=== PATIENT | male | born 1960 | race Caucasian/White ===

== ENCOUNTER 2020-02-27 18:13 | Inpatient (IN) | payer OTHER ==
[~2020-02-27] VITALS: Ht 195.6 cm; Wt 95.3 kg
[2020-02-27 18:41] VITALS: BP 132/83
[2020-02-27 19:07] LABS: ABSOLUTE EOSINOPHILS 0.1 thou/uL (0.0-0.7); ABSOLUTE LYMPHOCYTES 1.2 thou/uL (0.8-5.3); ABSOLUTE MONOCYTES 1.3 thou/uL (0.0-1.2); ABSOLUTE NEUTROPHILS 7.3 thou/uL (1.6-8.1); BASOPHILS 0.5 %; EOSINOPHILS 0.6 %; HEMOGLOBIN 14.3 gm/dL (14.0-18.0); LYMPHOCYTES 11.9 %; MCH 31.3 pg (26.0-34.0); MCV 92.2 fL (80.0-100.0); MONOCYTES 13.3 %; NUCLEATED RBCS 0 /100WBC; PLATELET COUNT* 287 thou/uL (150-400); POLYS 73.7 %; RBC 4.56 mil/uL (4.50-6.00); RDW-CV 12.9 % (10.5-14.5); WBC 9.8 thou/uL (4.0-11.0)
[2020-02-27 19:16] LABS: CALCIUM 9.2 mg/dL (8.5-10.1); CREATININE 1.2 mg/dL (0.6-1.3); POTASSIUM 3.7 mmol/L (3.5-5.1)
[2020-02-27 19:20] LABS: ALBUMIN 3.2 g/dL (3.4-5.0); TOTAL BILIRUBIN 1.8 mg/dL (<0.1-1.0); TOTAL PROTEIN 7.4 g/dL (6.4-8.2)
[2020-02-27 21:27] LABS: URINE BLOOD NEGATIVE (Negative); URINE CLARITY CLEAR; URINE COLOR YELLOW; URINE GLUCOSE-RANDOM NEGATIVE (Negative); URINE KETONES 1+ (Negative); URINE LEUKOCYTES-REFLEX NEGATIVE (Negative); URINE NITRITE-REFLEX NEGATIVE (Negative); URINE PROTEIN TRACE (Negative); URINE SPECIFIC GRAVITY 1.015 (1.005-1.030); URINE UROBILINOGEN 0.2 E.U./dl (0.2-1.0)
[2020-02-27 21:28] LABS: ICTOTEST (BILI CONFIRMATORY) Negative (Negative); URINE BILIRUBIN 2+ (Negative)
[2020-02-27 23:00] VITALS: BP 106/65
[2020-02-28 03:00] VITALS: BP 122/77
[2020-02-28 03:25] LABS: ABSOLUTE BASOPHILS 0.1 thou/uL (0.0-0.2); ABSOLUTE EOSINOPHILS 0.1 thou/uL (0.0-0.7); ABSOLUTE LYMPHOCYTES 0.9 thou/uL (0.8-5.3); ABSOLUTE NEUTROPHILS 4.4 thou/uL (1.6-8.1); BASOPHILS 0.9 %; EOSINOPHILS 0.8 %; HEMATOCRIT 36.6 % (42.0-52.0); HEMOGLOBIN 12.4 gm/dL (14.0-18.0); LYMPHOCYTES 13.9 %; MCH 31.2 pg (26.0-34.0); MCHC 33.9 g/dL (28.0-37.0); MCV 92.2 fL (80.0-100.0); MONOCYTES 15.4 %; MPV 8.6 fl. (7.2-11.1); NUCLEATED RBCS 0 /100WBC; PLATELET COUNT* 226 thou/uL (150-400); RBC 3.97 mil/uL (4.50-6.00); RDW-CV 12.6 % (10.5-14.5); WBC 6.4 thou/uL (4.0-11.0)
[2020-02-28 03:35] LABS: CREATININE 1.2 mg/dL (0.6-1.3); POTASSIUM 3.9 mmol/L (3.5-5.1)
[2020-02-28 03:39] LABS: ALBUMIN 2.4 g/dL (3.4-5.0); TOTAL BILIRUBIN 1.8 mg/dL (<0.1-1.0); TOTAL PROTEIN 5.8 g/dL (6.4-8.2)
[2020-02-28 06:51] VITALS: BP 126/73
[2020-02-28] MEDS ORDERED: FAMOTIDINE 20 M20 MG PO (07:20)
[2020-02-28] MEDS ORDERED: LIPITOR 20 MG T20 M1 PO (07:21)
[2020-02-28] MEDS ORDERED: ZETIA10 MG PO (07:21)
[2020-02-28] MEDS ORDERED: DICLOFENAC SOD100 G1 PO (07:21)
[2020-02-28] MEDS ORDERED: ASA81BEC PO (07:22)
[2020-02-28] MEDS ORDERED: TOPROL XL25 MG PO (07:22)
[2020-02-28] MEDS ORDERED: OMEPRAZOLE 20 M20 M1 PO (07:22)
[2020-02-28 08:57] VITALS: BP 156/73
--- NOTE | 2020-02-28 10:44 | EKG ---
[place] [address] ELECTROCARDIOGRAM REPORT Name: LUCIA HARTMAN Room: [address] ADM IN .R.#: [id number] Admission: 02/27/20 Attend Phys: Fredis Helm Discharge: Date of : 56 Date of Service: 02/27/201914 Report #: [id number] THIS REPORT FOR: //name// [facility] ED Test Date: 2020-02-27 Test Time: 19:15:03 Pat Name: LUCIA HARTMAN Department: Room: [facility] Gender: M Synthetic Department Supervisor: MR : [id number] Requested By: Rita Vanessa Order Number: [id number] MD: Eric Agiula Measurements Intervals [place] Rate: 71 P: 34 HI: 164 QRS: -32 QRSD: 99 T: 3 QT: 408 QTc: 444 Interpretive Statements Sinus rhythm Atrial premature complexes Left axis deviation Abnormal R-wave progression, late transition No previous ECG available for comparison Electronically Signed On 02-28-2020 10:44:48 [employer]NA[employer] by Eric Aguila [email or web address] <ELECTRONICALLY SIGNED> By: Eric Aguila MD, FACC 02/28/20 1044 14 14 Eric Aguila MD, FAC /EPI
--- NOTE | 2020-02-28 11:09 | CON ---
[address] [address] CONSULTATION Name: LUCIA HARTMAN Room: [address] IN M.R.#: [id number] Admission: 02/27/20 Attend Phys: Herminia Morales Discharge: Date of : 56 Report #: [id number] THIS REPORT FOR: //name// cc: JOSE DAVIES NP, KATHERINE J. NP ~ DATE OF SERVICE: 02/28/2020 Please note at the time of this dictation, the patient was seen and physically examined by myself. REASON FOR CONSULTATION: Diverticulitis with an abscess. HISTORY OF PRESENT ILLNESS: This is a 59-year-old male who presented to the Emergency Room with worsening of his abdominal pain. The patient states he went and saw his PCP in mid January with having a little bit of pain, thinking it was a flare of his diverticulitis. He was treated with Cipro and Flagyl, he states, which made him sick and gave him a little diarrhea that took about a week after he finished the antibiotics, then it finally clear up. His bowels have been back to normal, soft, minimal form, but no blood noted up until here recently. He states his pain never completely went away until last and Thursday, it started getting a little got worse, it got worse over the weekend, he started noticing with his bowel movements that he was noticing some bright red blood with that as well. On Thursday, his pain got significantly worse. He states he trying to call our office, but unable to get through. His PCP ordered a CT scan, which [facility] had [facility] that conveyed a fluid collection in the pericolonic inflammatory edema that is 6.5 x 3.6 x 4.5 fluid collection in the sigmoid colon. Otherwise, the rest of his CT was normal. The patient then came here to the Emergency Room because his pain was getting significantly worse. He states he had some nausea along with his lower abdominal pain and he was noticing some off and on fever and chills as well. The patient had a flex sig back in 09/2017 that just showed sigmoid diverticulosis and hemorrhoids, but no inking was done. The patient states that he has lost about 10 pounds over the last couple of weeks because he just really has not had much of an appetite since taking those antibiotics. ALLERGIES: No known drug allergies. MEDICATIONS FROM HOME: See MAR. PAST MEDICAL HISTORY: Coronary artery disease, diverticulitis, last bout prior to these was back in 2018. PAST SURGICAL HISTORY: He has had a bypass. [place] [address] CONSULTATION Name: JORGEPuneetLUCIA F Room: [address] IN M.R.#: [id number] Admission: 02/27/20 Attend Phys: Herminia Morales Discharge: Date of : 56 Report #: [id number] FAMILY HISTORY: Negative for any GI or female cancers. SOCIAL HISTORY: Denies any tobacco use. He quit years ago. Denies any illegal drug use, but he does have 2 hard liquor drinks of whiskey, very small amount with Coke 2 a night and has for many years. REVIEW OF SYSTEMS: Twelve-point review of systems is essentially negative except what is mentioned in the HPI. PHYSICAL EXAMINATION: VITAL SIGNS: Temperature 36.3, pulse 92, respirations 14 and blood pressure 156/73. HEART: Regular rate and rhythm. LUNGS: Clear. ABDOMEN: Soft, positive bowel sounds in all 4 quadrants with tenderness noted in the left lower quadrant. LABORATORY DATA: Hemoglobin is 12.4, white count is 6.4 and platelets 226. On admission, his hemoglobin is 14.3, BUN is 27, creatinine is 1.2. Total bilirubin is 1.8, alkaline phosphatase 157, ALT 30, AST is 21. Again, CT showed to be completely normal except for sigmoid diverticulitis with a 6.2 x 3.6 x 4.5 cm fluid collection present in the sigmoid mesentery. IMPRESSION: 1. Abdominal pain. 2. Sigmoid diverticulitis with abscess. 3. Nausea. 4. Elevated LFTs. 5. Alcohol use regularly. PLAN: 1. IR consulted for drain as well as surgery. 2. Continue his antibiotics, piperacillin. 3. The patient will need an office visit in about 4 weeks to schedule a colonoscopy in 09-18 for inking of his diverticular disease. Thank you for allowing us to participate in this patient's care. Please do not hesitate to call with any questions in regard to this consult. <ELECTRONICALLY SIGNED> By: Naresh Schwab DO 02/28/20 1109 0926 [id number] Schwab DO /nt
[2020-02-28 13:28] VITALS: BP 102/57
[2020-02-28 17:54] VITALS: BP 114/76
[2020-02-28 20:12] VITALS: BP 116/74
[2020-02-29] VITALS (7 sets, daily range): BP systolic 95–120; BP diastolic 53–79
[2020-02-29 04:07] LABS: HEMATOCRIT 37.3 % (42.0-52.0); HEMOGLOBIN 12.6 gm/dL (14.0-18.0); MCH 30.9 pg (26.0-34.0); MCHC 33.7 g/dL (28.0-37.0); MCV 91.8 fL (80.0-100.0); MPV 8.8 fl. (7.2-11.1); RBC 4.07 mil/uL (4.50-6.00); RDW-CV 12.6 % (10.5-14.5); WBC 6.5 thou/uL (4.0-11.0)
[2020-02-29 04:38] LABS: ALBUMIN 2.5 g/dL (3.4-5.0); CALCIUM 8.4 mg/dL (8.5-10.1); POTASSIUM 3.8 mmol/L (3.5-5.1); TOTAL BILIRUBIN 1.4 mg/dL (<0.1-1.0); TOTAL PROTEIN 6.2 g/dL (6.4-8.2)
--- NOTE | 2020-02-29 08:39 | NUR ---
PT IS ABLE TO COMMUNICATE HIS NEEDS TO STAFF EFFECTIVELY. HE HAS DENIED THE NEED FOR PAIN MEDICATION UP TO THIS TIME. HE HAS BEEN NPO FOR ABD CT AND POSSIBLE ABCESS DRAIN IN IR LATER TODAY. SURGERY, GI, IR ALL FOLLOWING.
--- NOTE | 2020-02-29 13:53 | NUR ---
Pt is A&O. Resides at home with his . Independent and active. No DME. No hx of SNF. Hx of HH post knee surgery. Hx of outpt therapy. Pt to have CT scan today, drain to be placed on Thursday. Pt's goal is to return home at ne, no needs anticipated. Following.
[2020-03-01 04:00] VITALS: BP 100/70
[2020-03-01 04:25] LABS: ABSOLUTE EOSINOPHILS 0.1 thou/uL (0.0-0.7); ABSOLUTE LYMPHOCYTES 0.9 thou/uL (0.8-5.3); ABSOLUTE MONOCYTES 0.8 thou/uL (0.0-1.2); ABSOLUTE NEUTROPHILS 3.9 thou/uL (1.6-8.1); BASOPHILS 0.8 %; EOSINOPHILS 1.5 %; HEMATOCRIT 36.6 % (42.0-52.0); HEMOGLOBIN 12.4 gm/dL (14.0-18.0); LYMPHOCYTES 15.9 %; MCH 30.9 pg (26.0-34.0); MCHC 33.9 g/dL (28.0-37.0); MCV 90.9 fL (80.0-100.0); MONOCYTES 13.9 %; MPV 8.5 fl. (7.2-11.1); NUCLEATED RBCS 0 /100WBC; PLATELET COUNT* 249 thou/uL (150-400); POLYS 67.9 %; RBC 4.02 mil/uL (4.50-6.00); RDW-CV 12.5 % (10.5-14.5); WBC 5.7 thou/uL (4.0-11.0)
[2020-03-01 04:47] LABS: PREALBUMIN 10.6 mg/dL (18.0-35.7)
--- NOTE | 2020-03-01 04:49 | NUR ---
PT ALERT ORIENTED. UP AD ELIZABETH IN ROOM. TELEMETRY SHOWS SR. ON RA. PT DENIES NEED FOR PAIN MEDICATION. RATING PAIN AT 3. PT REMINDED TO CALL NURSE IF HE HAS INCREASED PAIN. WILL CONTINUE TO MONITOR.
[2020-03-01 05:01] LABS: ALBUMIN 2.5 g/dL (3.4-5.0); CALCIUM 8.4 mg/dL (8.5-10.1); CREATININE 1.1 mg/dL (0.6-1.3); POTASSIUM 3.8 mmol/L (3.5-5.1); TOTAL BILIRUBIN 1.1 mg/dL (<0.1-1.0); TOTAL PROTEIN 6.2 g/dL (6.4-8.2)
[2020-03-01 06:13] LABS: ESR (SEDRATE) 45 mm/hr (0-20)
--- NOTE | 2020-03-01 08:45 | NUR ---
PT TO CT VIA WC WITH DESK OPERATOR.
[2020-03-01 08:59] VITALS: BP 111/68
[2020-03-01 12:00] VITALS: BP 108/66
--- NOTE | 2020-03-01 13:28 | NUR ---
Cat scan today. Abscess drain to be placed tomorrow.
[2020-03-01 15:02] VITALS: BP 108/66
[2020-03-01 16:39] VITALS: BP 124/78
[2020-03-01 19:55] VITALS: BP 105/84
[2020-03-02] VITALS: BP 103/60
[2020-03-02 04:00] VITALS: BP 115/75
[2020-03-02 04:12] LABS: HEMATOCRIT 37.8 % (42.0-52.0); HEMOGLOBIN 12.6 gm/dL (14.0-18.0); MCH 30.7 pg (26.0-34.0); MCHC 33.4 g/dL (28.0-37.0); MCV 91.8 fL (80.0-100.0); RBC 4.11 mil/uL (4.50-6.00); RDW-CV 12.8 % (10.5-14.5); WBC 7.3 thou/uL (4.0-11.0)
[2020-03-02 04:52] LABS: ALBUMIN 2.5 g/dL (3.4-5.0); CALCIUM 8.2 mg/dL (8.5-10.1); POTASSIUM 3.7 mmol/L (3.5-5.1); TOTAL BILIRUBIN 0.8 mg/dL (<0.1-1.0); TOTAL PROTEIN 6.2 g/dL (6.4-8.2)
--- NOTE | 2020-03-02 05:24 | NUR ---
PT ALERT ORIENTED. UP AD ELIZABETH IN ROOM. NPO AT IN FOR. TELEMETRY SHOWS SR. BATES
[2020-03-02 08:32] VITALS: BP 116/71
[2020-03-02] MEDS ORDERED: PEPCID20 MG PO (15:08)
[2020-03-02] MEDS ORDERED: AUGMENTIN 875-1 EACH PO (15:09)
[2020-03-02] MEDS ORDERED: XANAX 0.5 MG0.5 M1 PO (15:09)
--- NOTE | 2020-03-02 15:09 | NUR ---
Pt had abscessed drained today, possible dc home post procedure. No needs.
[2020-03-02] MEDS ORDERED: NORCO 5-325 TA1 EAC2 PO (15:10)
[2020-03-02 15:52] VITALS: BP 116/71
--- NOTE | 2020-03-02 17:45 | NUR ---
PT. AOX4, VSS, SR ON MONITOR, PAIN UNDER CONTROL, PT. TOLERATED LUNCH WITHOUT COMPLICATIONS. DISCHARGE PAPERWORK AND PRESCRIPTIONS PROVIDE, EXPLAINED, PT. VERBALIZED. IV DECED. PT. LEFT BY WHEELCHAIR, IN NO APPARENT DISTRESS, AND PICKED BY BY BY CAR.
== END 2020-03-02 16:40 | disposition home or self-care (01) | DRG 378 ==
LOC: M.ERS 18:13 → M.TBA-ER 19:02 → M.2W 19:02
PROVIDERS: Internal Medicine Gastroenterology; Nurse Practitioner Family; Surgery; ADMIT Internal Medicine; ATTEND Internal Medicine
DX: K57.21 Diverticulitis of large intestine with perforation and abscess with bleeding (principal); R65.10 Systemic inflammatory response syndrome (SIRS) of non-infectious origin without acute organ dysfunction; E44.0 Moderate protein-calorie malnutrition; K21.9 Gastro-esophageal reflux disease without esophagitis; I25.10 Atherosclerotic heart disease of native coronary artery without angina pectoris; I10 Essential (primary) hypertension; Z20.828 Contact with and (suspected) exposure to other viral communicable diseases; Z96.652 Presence of left artificial knee joint; Z68.24 Body mass index [BMI] 24.0-24.9, adult; Z95.1 Presence of aortocoronary bypass graft

== ENCOUNTER → 2020-03-06 | Outpatient (CLI) | payer OTHER ==
[~2020-03-06] MED LIST: ASA81BEC PO; AUGMENTIN 875-1 EACH PO; DICLOFENAC SOD100 G1 PO; FAMOTIDINE 20 M20 MG PO; LIPITOR 20 MG T20 M1 PO; NORCO 5-325 TA1 EAC2 PO; OMEPRAZOLE 20 M20 M1 PO; PEPCID20 MG PO; TOPROL XL25 MG PO; XANAX 0.5 MG0.5 M1 PO; ZETIA10 MG PO
== END ==
LOC: M.CT 12:08
PROVIDERS: ATTEND Nurse Practitioner Family
DX: K57.80 Diverticulitis of intestine, part unspecified, with perforation and abscess without bleeding (principal); R19.5 Other fecal abnormalities; N40.1 Benign prostatic hyperplasia with lower urinary tract symptoms; I70.0 Atherosclerosis of aorta; M25.78 Osteophyte, vertebrae

== ENCOUNTER → 2020-03-15 | Outpatient (CLI) | payer OTHER | LOC: M.CT 08:37 | PROVIDERS: ATTEND Nurse Practitioner Family | DX: K57.32 Diverticulitis of large intestine without perforation or abscess without bleeding (principal); N28.9 Disorder of kidney and ureter, unspecified; I25.10 Atherosclerotic heart disease of native coronary artery without angina pectoris; K80.80 Other cholelithiasis without obstruction; J98.4 Other disorders of lung; M25.78 Osteophyte, vertebrae ==